=== PATIENT | female | born 1975 | race Hispanic/Latino ===

== ENCOUNTER 2017-03-17 11:43 | Emergency (ER) | payer BC ==
[~2017-03-17] VITALS: Ht 162.6 cm; Wt 80.6 kg
[2017-03-17 12:32] LABS: EOSINOPHIL (%) 9.2 % (0-5); EOSINOPHIL COUNT 0.5 K/uL (0-0.3); IMMATURE GRANULOCYTE (%) 0.3 % (0.0-0.7); INSTRUMENT ABS NEUTROPHIL CT 3.3 K/uL; LYMPHOCYTE COUNT 1.5 K/uL (1.0-2.8); MCH 31.4 PG (29.0-34.0); MCV 92.3 FL (83-99); MEAN PLAT.VOLUME 10.1 uM^3 (9.5-12.4); MONOCYTE (%) 6.9 % (3-12); MONOCYTE COUNT 0.4 K/uL (0-0.8); NEUTROPHIL (%) 57.3 % (45-76); NEUTROPHIL COUNT 3.3 K/uL (1.8-6.4); PLATELET COUNT 216 K/uL (156-360); RBC DIS.WIDTH-CV 12.5 % (11.8-14.6); RBC DIS.WIDTH-SD 42.5 % (39-53); RED BLOOD COUNT 3.79 M/uL (3.80-5.20); WHITE BLOOD COUNT 5.8 K/uL (4.1-10.2)
[2017-03-17 12:39] LABS: CHLORIDE 105 mEq/L (99-109); POTASSIUM 3.1 mEq/L (3.7-5.4); SODIUM 139 mEq/L (136-147)
[2017-03-17 12:42] LABS: GLUCOSE 156 mg/dL (70-99)
[2017-03-17 12:43] LABS: ANION GAP 9 MEQ/L (2-14)
[2017-03-17 12:44] LABS: TOTAL BILIRUBIN 0.8 mg/dL (0.0-1.0)
[2017-03-17 12:45] LABS: ALKALINE PHOSPHATASE 38 IU/L (3-129)
[2017-03-17 12:46] LABS: GFR ESTIMATE (CALCULATED) > 59 mL/min/; UREA NITROGEN (BUN) 11 mg/dL (9-23)
[2017-03-17 12:54] LABS: QUANTITATIVE HCG < 4.0 MIU/ML
[2017-03-17] MEDS ORDERED: PREDNISONE10 MG PO (14:26)
[2017-03-17] MEDS ORDERED: SOOTHE LUBRICA1 EACH RIGHT EYE (14:26)
[2017-03-17] MEDS ORDERED: VALTREX50 MG/ML PO (14:26)
[2017-03-17 14:51] VITALS: BP 130/80
[2017-03-18 11:06] LABS: LYME DISEASE SEROLOGY SCREEN NEGATIVE (NEGATIVE)
== END 2017-03-17 14:57 | disposition home or self-care (01) ==
LOC: EME 11:43
PROVIDERS: Emergency Medicine
DX: G51.0 Bell's palsy (principal)
CPT/HCPCS: 70450; 70551; 80053; 84702; 85025; 86618; 99281; 99284; J7512